=== PATIENT | female | born 1975 | race Caucasian/White ===

== ENCOUNTER 2018-09-25 05:35 | Day surgery (SDC) | payer OTHER ==
[~2018-09-25] VITALS: Ht 157.5 cm; Wt 92.1 kg
[2018-09-25 05:51] LABS: HCG,QUAL RESULT NEGATIVE (NEGATIVE)
[2018-09-25] MEDS ORDERED: CEFAZOLIN 2 GM IVPB PREMIX 50 ML IV ONE (06:50)
[2018-09-25] MEDS ORDERED: LR 1,000 ML IV.SOLN IV ONE (06:50)
[2018-09-25] MEDS ORDERED: ROPIVACAINE HCL/PF 5 MG/ML 0.5% 30 ML VIAL INJ ONE (06:50)
[2018-09-25] MEDS ORDERED: ROCURONIUM BROMIDE 10 MG/ML (ZEMURON) IV ONE (06:50)
[2018-09-25] MEDS ORDERED: NS 1000 ML IV.SOLN IV ONE (06:50)
[2018-09-25] MEDS ORDERED: PROPOFOL 200MG/ 20ML VIAL (DIPRIVAN) IV ONE (06:50)
[2018-09-25] MEDS ORDERED: MIDAZOLAM HCL 5 MG/5 ML VIAL IVP ONE (06:50)
[2018-09-25] MEDS ORDERED: BUPIVACAINE /PF 0.25% 30 ML VIAL INJ ONE (06:50)
[2018-09-25] MEDS ORDERED: SEVOFLURANE 15 MIN GAS INH ONE (06:50)
[2018-09-25] MEDS ORDERED: ONDANSETRON HCL 4 MG/2 ML VIAL IVP ONE (06:50)
[2018-09-25] MEDS ORDERED: ROPIVACAINE HCL/PF 0.2% (NAROPIN) 200 ML PLAST..BAG EP ONE (06:50)
[2018-09-25] MEDS ORDERED: fentaNYL CITRATE 250 MCG/5 ML AMP IV ONE (06:50)
[2018-09-25] MEDS ORDERED: LR 1,000 ML IV SCH (08:37)
[2018-09-25] MEDS ORDERED: METOCLOPRAMIDE HCL 10 MG/2 ML VIAL IVP PRN (08:45)
[2018-09-25] MEDS ORDERED: MORPHINE 4 MG/ML INJ. SYRINGE IVP PRN ×3 (08:45)
[2018-09-25] MEDS ORDERED: OXYCODONE/ACETAMINOPHEN 5-325 TABLET PO PRN ×3 (09:45)
[2018-09-25] MEDS ORDERED: PROMETHAZINE HCL 25 MG/ML AMP IM PRN ×2 (09:45)
[2018-09-25] MEDS ORDERED: ONDANSETRON HCL 4 MG/2 ML VIAL IVP PRN (09:45)
[2018-09-25] MEDS ORDERED: HYDROmorphone 2 MG TAB PO PRN (09:45)
[2018-09-25] MEDS ORDERED: MORPHINE 4 MG/ML INJ. SYRINGE ONE (10:51)
[2018-09-25 11:17] VITALS: BP_SYST 135
[2018-09-25] MEDS ORDERED: KETOROLAC TROMETHAMINE 30 MG VIAL IVP SCH (12:00)
[2018-09-25] MEDS ORDERED: OXYCODONE/ACETAMINOPHEN 5-325 TABLET ONE (12:52)
== END 2018-09-25 14:00 | disposition home or self-care (01) ==
LOC: SDS 05:35 → SMU 05:35 → SDS 14:00
PROVIDERS: ATTEND Obstetrics & Gynecology
DX: D25.9 Leiomyoma of uterus, unspecified (principal); I12.9 Hypertensive chronic kidney disease with stage 1 through stage 4 chronic kidney disease, or unspecified chronic kidney disease; E11.22 Type 2 diabetes mellitus with diabetic chronic kidney disease; N18.1 Chronic kidney disease, stage 1; E11.319 Type 2 diabetes mellitus with unspecified diabetic retinopathy without macular edema; E78.5 Hyperlipidemia, unspecified; Z98.890 Other specified postprocedural states; E66.01 Morbid (severe) obesity due to excess calories; Z79.899 Other long term (current) drug therapy; Z68.37 Body mass index [BMI] 37.0-37.9, adult; E55.9 Vitamin D deficiency, unspecified; Z79.84 Long term (current) use of oral hypoglycemic drugs; Z83.3 Family history of diabetes mellitus; Z82.49 Family history of ischemic heart disease and other diseases of the circulatory system; Z85.528 Personal history of other malignant neoplasm of kidney; Z80.3 Family history of malignant neoplasm of breast
CPT/HCPCS: 36415; 58571; 82962; 84703; 86886; 86900; 86901; 88307; J2270; J7120; S2900; C1727; E0190; J0690; J2250; J2405; J2704; J3010; J3490; J7030